=== PATIENT | female | born 1960 | race Caucasian/White ===

== ENCOUNTER → 2016-08-15 | Outpatient (REF) | payer MEDICARE ==
[~2016-08-15] MED LIST: /TIOT18INH INH; ADVAIR INH; AZIT250T3 PO; DEXILANT PO; DICL13PA TD; GABA-283 PO; LEVO750T33 PO; LIMBREL PO; LISI10TA4 PO; METF500T4 PO; NIAS500T2 PO; NICO21DI5 TD; PRED10PA PO; RYZOLT PO; SIMV20TA2 PO; TRILIPIX PO; VENTAER IN
[2016-08-15 17:09] LABS: BASO % 0.3 % (0.0-1.0); EOS # 0.1 K/mm3 (0.0-0.50); EOS % 1.2 % (0.0-3.0); LARGE UNSTAINED CELL # 0.2 K/mm3 (0.0-0.4); LARGE UNSTAINED CELL % 2.1 % (0.0-4.0); LYMPH # 2.2 K/mm3 (1.5-4.5); LYMPH % 29.2 % (24.0-44.0); MEAN CORPUSCULAR HGB CONC 33.7 g/dl (32.0-36.5); MEAN CORPUSCULAR VOLUME 92.1 fl (80.0-96.0); MONO # 0.4 K/mm3 (0.0-0.8); MONO % 4.6 % (0.0-5.0); NEUTROPHILS # 4.8 K/mm3 (1.8-7.7); NEUTROPHILS % 62.7 % (36.0-66.0); PLATELET COUNT, AUTOMATED 177 k/mm3 (150-450); RED CELL DISTRIBUTION WIDTH 13.7 % (11.5-14.5); WHITE BLOOD COUNT 7.7 K/mm3 (4.0-10.0)
[2016-08-15 17:17] LABS: ALBUMIN 3.8 GM/DL (3.2-5.2); ALBUMIN/GLOBULIN RATIO 1.12 (1.00-1.93); ALKALINE PHOSPHATASE 121 U/L (45-117); ALT/SGPT 37 U/L (12-78); AMYLASE 92 U/L (25-115); ANION GAP 7 MEQ/L (8-16); AST/SGOT 19 U/L (15-37); BILIRUBIN,TOTAL 0.4 MG/DL (0.2-1.0); BLOOD UREA NITROGEN 11 MG/DL (7-18); CALCIUM LEVEL 9.4 MG/DL (8.5-10.1); CARBON DIOXIDE LEVEL 30 MEQ/L (21-32); CHLORIDE LEVEL 101 MEQ/L (98-107); CREATININE FOR GFR 0.94 MG/DL (0.55-1.02); GLOMERULAR FILTRATION RATE > 60.0 (>51); GLUCOSE, FASTING 112 MG/DL (70-105); POTASSIUM SERUM 4.1 MEQ/L (3.5-5.1); SODIUM LEVEL 138 MEQ/L (136-145); TOTAL PROTEIN 7.2 GM/DL (6.4-8.2)
== END ==
LOC: M SFHCPLAZ 16:57
PROVIDERS: ATTEND Physician Assistant Medical
DX: K31.84 Gastroparesis (principal)
CPT/HCPCS: 36415; 80053; 82150; 83690; 85025; G0463

== ENCOUNTER → 2016-08-16 | Outpatient (CLI) | payer MEDICARE ==
[~2016-08-16] MED LIST changes: +GASTROGRAFIN SOLUTION 30ML (Q9963) As Ordered ONE; +ISOVUE-370 76% 100ML VIAL (Q9967) As Ordered ONE
--- NOTE | 2016-08-16 10:33 | REP ---
CT abdomen and pelvis without and with IV contrast: With oral contrast. History: Abdominal pain, gastroparesis, no bowel sounds. Comparison CT study February 05, 2014. CT contrast dose: 100 ml of Isovue [address] findings: Preliminary digital french binding folder radiograph is unremarkable. The lung bases are clear. There is moderate to marked diffuse fatty infiltration of the liver. No focal hepatic mass lesion is seen. The fatty liver changes are much more prominent than on the comparison study from 2013. No adrenal lesion is observed. Gallbladder is unremarkable. There is some parenchymal fat sparing adjacent to the gallbladder. No pancreatic abnormality is seen. Kidneys enhance symmetrically. 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 No hydronephrosis is seen on either side. No intrarenal calculus is seen. Some vascular calcification is noted in a normal caliber aorta. Small and large intestinal bowel loops are unremarkable in the abdomen and pelvis. No gastric lesion is appreciated. No abdominal wall defect is seen. No uterine or ovarian abnormality is observed. Bone window settings show mild degenerative disc changes and facet changes in the lumbar spine. No bony destructive lesion. A normal appendix is visible in the right lower quadrant. Impression: 1. Moderate to marked diffuse fatty infiltration of the liver. 2. Focal renal cortical parenchymal scarring upper pole left kidney. 3. Normal bowel gas pattern. No evidence of obstruction. Signed by Sky Galan MD 08/16/2016 12:25 P
== END ==
LOC: M RAD 07:57
PROVIDERS: ATTEND Physician Assistant Medical
DX: K31.84 Gastroparesis (principal); K76.0 Fatty (change of) liver, not elsewhere classified
CPT/HCPCS: 74178; Q9963; Q9967

== ENCOUNTER → 2016-08-31 | Outpatient (CLI) | payer MEDICARE ==
[~2016-08-31] MED LIST changes: -GASTROGRAFIN SOLUTION 30ML (Q9963) As Ordered ONE; -ISOVUE-370 76% 100ML VIAL (Q9967) As Ordered ONE
[2016-08-31 10:52] LABS: BASO % 0.2 % (0.0-1.0); EOS # 0.1 K/mm3 (0.0-0.50); EOS % 1.5 % (0.0-3.0); LARGE UNSTAINED CELL # 0.1 K/mm3 (0.0-0.4); LARGE UNSTAINED CELL % 1.9 % (0.0-4.0); LYMPH # 2.1 K/mm3 (1.5-4.5); LYMPH % 33.6 % (24.0-44.0); MEAN CORPUSCULAR HEMOGLOBIN 31.3 pg (27.0-33.0); MEAN CORPUSCULAR HGB CONC 33.3 g/dl (32.0-36.5); MEAN CORPUSCULAR VOLUME 93.8 fl (80.0-96.0); MONO # 0.4 K/mm3 (0.0-0.8); MONO % 6.3 % (0.0-5.0); NEUTROPHILS # 3.3 K/mm3 (1.8-7.7); NEUTROPHILS % 56.5 % (36.0-66.0); PLATELET COUNT, AUTOMATED 161 k/mm3 (150-450); RED CELL DISTRIBUTION WIDTH 13.8 % (11.5-14.5); WHITE BLOOD COUNT 5.9 K/mm3 (4.0-10.0)
[2016-08-31 11:12] LABS: ALBUMIN 3.5 GM/DL (3.2-5.2); ALBUMIN/GLOBULIN RATIO 1.13 (1.00-1.93); BILIRUBIN,TOTAL 0.3 MG/DL (0.2-1.0); CALCIUM LEVEL 8.8 MG/DL (8.5-10.1); CREATININE FOR GFR 1.12 MG/DL (0.55-1.02); GLOMERULAR FILTRATION RATE 53.6 (>51); POTASSIUM SERUM 4.2 MEQ/L (3.5-5.1); TOTAL PROTEIN 6.6 GM/DL (6.4-8.2)
== END ==
LOC: M LAB 10:04
PROVIDERS: ATTEND Family Medicine
DX: E11.9 Type 2 diabetes mellitus without complications (principal)

== ENCOUNTER → 2016-10-06 | Outpatient (REF) | payer MEDICARE | LOC: M LAB REF 10:47 | PROVIDERS: ATTEND Physician Assistant Medical | DX: R19.7 Diarrhea, unspecified (principal) ==

== ENCOUNTER → 2016-10-19 | Outpatient (CLI) | payer MEDICARE ==
[~2016-10-19] VITALS: Ht 167.6 cm; Wt 127.0 kg
[~2016-10-19] MED LIST changes: +ALBU17IN INH; +LIDOCAINE 2% INJ 100 MG/5 ML SDV (FOR ANES.) As Ordered ONE; +METF500T PO; +NS 1,000 ML IV ONE; +PRIL20CA9 PO; +PROPOFOL 500 MG/50 ML VIAL As Ordered ONE
--- NOTE | 2016-10-19 11:28 | ROOR ---
Patient Name: Donya Latham Procedure Date: 10/19/2016 11:20 AM Date of : 1960 Age: 56 Room: [facility] Gender: Female Note Status: Finalized Procedure: Upper GI endoscopy Indications: Heartburn Providers: Wale AGUILAR MD Referring MD: Sheela Allen Requesting Provider: Medicines: Monitored Anesthesia Care Complications: No immediate complications. Procedure: Pre-Anesthesia Assessment: - The heart rate, respiratory rate, oxygen saturations, blood pressure, adequacy of pulmonary ventilation, and response to care were monitored throughout the procedure. The Endoscope was introduced through the mouth, and advanced to the second part of duodenum. The upper GI endoscopy was accomplished without difficulty. The patient tolerated the procedure well. Findings: Moderately severe esophagitis was found in the entire esophagus. Biopsies were taken with a cold forceps for histology. The exam was otherwise without abnormality. Impression: - Moderately severe reflux esophagitis. Biopsied. - The examination was otherwise normal. Recommendation: - Use Prilosec (omeprazole) 40 mg PO BID. - Gastroparesis diet: - Eat smaller, more frequent meals throughout the day. - Low fat diet. - Liquid/soft foods are tolerated better than solid foods. - Low fiber/well cooked vegetables are tolerated better than high fiber/fibrous foods/raw vegetables. - Avoid medications that inhibit gastric/intestinal motility such as narcotic medications. - Follow an antireflux regimen. Wale Aguilar MD Wale AGUILAR MD 10/19/2016 11:28:23 AM This report has been signed electronically. Number of Addenda: 0 Note Initiated On: 10/19/2016 11:20 AM Estimated Blood Loss: Estimated blood loss: none.
--- NOTE | 2016-10-19 11:40 | ROOR ---
Patient Name: Donya Latham Procedure Date: 10/19/2016 11:21 AM Date of : 1960 Age: 56 Room: [facility] Gender: Female Note Status: Finalized Procedure: Colonoscopy Indications: High risk colon cancer surveillance: Personal history of colonic polyps, Last colonoscopy: September 2013 Providers: Wale AGUILAR MD Referring MD: Sheela Allen Requesting Provider: Medicines: Monitored Anesthesia Care Complications: No immediate complications. Procedure: Pre-Anesthesia Assessment: - The heart rate, respiratory rate, oxygen saturations, blood pressure, adequacy of pulmonary ventilation, and response to care were monitored throughout the procedure. The Colonoscope was introduced through the anus and advanced to the cecum, identified by appendiceal orifice and ileocecal valve. The colonoscopy was performed without difficulty. The patient tolerated the procedure well. The quality of the bowel preparation was good. Findings: The perianal and digital rectal examinations were normal. A few medium-mouthed diverticula were found in the sigmoid colon. Small Internal Hemorrhoids. A 7 mm polyp was found in the proximal ascending colon. The polyp was sessile. The polyp was removed with a piecemeal technique using a hot snare. The polyp was removed with a cold snare. Resection and retrieval were complete. The exam was otherwise normal throughout the examined colon. Impression: - Mild diverticulosis in the sigmoid colon. - Small Internal Hemorrhoids. - One 7 mm polyp in the proximal ascending colon, removed with a cold snare and removed piecemeal using a hot snare. Resected and retrieved. Recommendation: - Repeat colonoscopy in 3 years for surveillance. Wale Aguilar MD Wale AGUILAR MD 10/19/2016 11:40:22 AM This report has been signed electronically. Number of Addenda: 0 Note Initiated On: 10/19/2016 11:21 AM Estimated Blood Loss: Estimated blood loss: none.
[2016-10-19 12:08] VITALS: BP 133/69
== END | disposition home or self-care (01) ==
LOC: M OPP 09:38
PROVIDERS: ATTEND Internal Medicine Gastroenterology
DX: Z12.11 Encounter for screening for malignant neoplasm of colon (principal); K57.30 Diverticulosis of large intestine without perforation or abscess without bleeding; K64.8 Other hemorrhoids; D12.2 Benign neoplasm of ascending colon; K21.9 Gastro-esophageal reflux disease without esophagitis; E78.5 Hyperlipidemia, unspecified; E11.9 Type 2 diabetes mellitus without complications; M19.90 Unspecified osteoarthritis, unspecified site; R56.9 Unspecified convulsions; J45.909 Unspecified asthma, uncomplicated; R06.83 Snoring; F17.210 Nicotine dependence, cigarettes, uncomplicated; Z79.899 Other long term (current) drug therapy; Z79.84 Long term (current) use of oral hypoglycemic drugs; K44.9 Diaphragmatic hernia without obstruction or gangrene

== ENCOUNTER → 2018-01-07 | Outpatient (REF) | payer MEDICARE | LOC: M LABDRAW1 14:59 | DX: N63.0 Unspecified lump in unspecified breast (principal) | CPT/HCPCS: 88305 ==

== ENCOUNTER → 2021-09-13 | Outpatient (CLI) | payer MEDICARE ==
[~2021-09-13] MED LIST changes: -/TIOT18INH INH; +AZIT-12 PO; -AZIT250T3 PO; +LEVO750T13 PO; -LEVO750T33 PO; -LIDOCAINE 2% INJ 100 MG/5 ML SDV (FOR ANES.) As Ordered ONE; -METF500T PO; +METF500T13 PO; -NICO21DI5 TD; +NICO21DI6 TD; -NS 1,000 ML IV ONE; -PROPOFOL 500 MG/50 ML VIAL As Ordered ONE; +SPIR1CAP INH
== END ==
LOC: M RAD 16:01
PROVIDERS: ATTEND Physician Assistant
DX: Z12.2 Encounter for screening for malignant neoplasm of respiratory organs (principal); F17.210 Nicotine dependence, cigarettes, uncomplicated; N18.9 Chronic kidney disease, unspecified

== ENCOUNTER → 2025-04-30 | Outpatient (CLI) | payer MEDICARE, OTHER ==
[~2025-04-30] MED LIST changes: -GABA-283 PO; +GABA-284 PO; +LEVO1TAB40 PO; -LEVO750T13 PO
== END ==
LOC: M PLAIMG 10:31
PROVIDERS: ATTEND Physician Assistant
DX: R42 Dizziness and giddiness (principal)